=== PATIENT | female | born 1970 | race Caucasian/White ===

== ENCOUNTER → 2021-11-24 10:30 | Outpatient (CLI) | payer BC, SELFPAY ==
[2021-11-24 20:10] LABS: SARS-CoV-2 RNA PCR Negative
== END ==
PROVIDERS: PCP Family Medicine; Visit Provider Family Medicine
DX: Z20.822 Contact with and (suspected) exposure to COVID-19 (principal)
CPT/HCPCS: C9803; U0003; U0005

== ENCOUNTER 2024-09-18 16:12 | Outpatient (CLI) | payer BC, OTHER, SELFPAY ==
[2024-09-18 23:11] LABS: Free T4 Free Thyroxine 0.64 ng/mL (0.78-2.19)
== END 2024-09-18 16:13 | disposition home or self-care (01) ==
LOC: ANHBWCLAB 16:14
PROVIDERS: PCP Nurse Practitioner Adult Health; Visit Provider Nurse Practitioner Adult Health
DX: R79.89 Other specified abnormal findings of blood chemistry (principal)
CPT/HCPCS: 36415; 84439; 84443

== ENCOUNTER 2024-11-01 15:35 | Outpatient (CLI) | payer BC, OTHER, SELFPAY ==
[2024-11-01 20:41] LABS: Free T4 Free Thyroxine 0.75 ng/dL (0.78-2.19)
== END 2024-11-01 15:36 | disposition home or self-care (01) ==
LOC: ANHBWCLAB 15:37
PROVIDERS: PCP Nurse Practitioner Adult Health; Visit Provider Nurse Practitioner Adult Health
DX: E03.9 Hypothyroidism, unspecified (principal)
CPT/HCPCS: 36415; 84439; 84443

== ENCOUNTER 2024-12-31 15:47 | Outpatient (CLI) | payer BC, OTHER, SELFPAY ==
--- OUTSIDE RECORDS SUMMARY | 2024-12-31 15:50 | XMS_ITS | Clinical Summary ---
Author Organization [facility] Address [address] [place] [address] Phone Care Team Providers Care Electric Appliance Installer Name Role Phone Aracelis Barry MD Primary Care Provider Allergies Active Allergy Reactions Criticality Noted Date Comments Cefuroxime Diarrhea,Vomiting 09/27/2021 Medications pseudoephedrine (SUDAFED) 120 MG TABLET SR 12 HR Take 120 mg by mouth 2 times daily as needed for Congestion. Active buPROPion (WELLBUTRIN) 300 MG TABLET SR 24 HR XL tablet Take 300 mg by mouth daily. 1 Active albuterol 108 (90 Base) MCG/ACT Aerosol Solution take 2 Puffs by inhalation every 4 hours as needed for Wheezing or Cough. 1 Inhaler 2 1 Active traMADol (ULTRAM) 50 MG TabletIndication s:Chest pain, unspecified type,Pneumonia of left lower lobe due to infectious organism Take 1-2 Tablets by mouth every 6 hours as needed for Moderate or more severe pain. 20 Tablet 1 Active Cetirizine HCl (ZYRTEC PO) Take by mouth. Act yann Active Problems No known active problems Immunizations Immunization Administration Dates Next Due TDAP Vaccine 09/27/2021 Social History Tobacco Use Types Packs/Day Years Used Date Smoking Tobacco: Every Day Cigarettes Smokeless Tobacco: Never Alcohol Use Standard Drinks/Week Comments No 0 (1 standard drink = 0.6 oz pur e alcohol) Comments No Sex and Gender Information Value Date Recorded Sex Assigned at Not on file Legal Sex Female 7:24 PM CDT Gender Identity Not on file Sexual Orientation Not on file Last Filed Vital Signs Vital Sign Reading Time Taken Comments Blood Pressure 118/80 09/27/2021 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 Pulse 73 09/27/2021 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 Temperature 37.2 C (99 F) 09/27/2021 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 Respiratory Rate 16 09/27/2021 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 Oxygen Saturation 98% 09/27/2021 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 Inhaled Oxygen Concentration - - Weight 59 kg (130 lb) 07/02/2021 7:16 AM CDT Height 160 cm (5' 3 ) 07/02/2021 7:16 AM CDT Body Mass Index 23.03 07/02/2021 7:16 AM CDT Plan of Treatment Health Maintenance Due Date Last Done Comments Hepatitis C Virus (HCV) Screening 1972 Hepatitis B Immunization (1 of 3 - 19+ 3-dose series) 1991 Pap Smear 1993 Cervical Cancer Screening (CCS) 2002 HPV/Cotest 2002 Colonoscopy 2017 Colorectal Cancer Screening 2017 Cologuard 2022 Immunochemical Fecal Occult Blood 2022 Mammogram 2022 03/09/2018 Pneumococcal Immunization (5 0+ years) (1 of 1 - PCV) 2022 Zoster Immunization (1 of 2) 2022 Influenza Immunization (#1) 2024 SARS-COV-2 Immunization ( season) 2024 Respiratory Syncytial Virus (RSV) Immunization (Adult) (1 - 1-dose 75+ series) 2047 Discussion re Starting/Frequ ency of Mammograms Discontinued 03/09/2018 DTaP/Tdap/Td Immunization Discontinued 09/27/2021 Meningococcal Immunization (ACWY) Aged Out No longer eligible based on patient's age to complete this topic Pneumococcal Immunization Combined Aged Out No longer eligible based on patient's age to complete this topic Rotavirus Immunization Aged Out No lo nger eligible based on patient's age to complete this topic Procedures Procedure Name Priority Date/Time Associated Diagnosis Comments KATINA SCREENING BILATERAL DIGITAL W CAD Routine 03/09/2018 4:35 PM CDT Screening breast examination from Last 3 Months or Most Recently Relevant to Health Maintenance Results * KATINA SCREENING BILATERAL DIGITAL W CAD (03/09/2018 4:35 PM CDT) Anatomical Region Laterality Modality breast Bilateral Mammography 03/09/2018 4:06 PM CDT Narrative 03/11/2018 2:31 PM CDT - KATINA SCREENING BILATERAL DIGITAL W CAD BILATERAL DIGITAL SCREENING MAMMOGRAM WITH CAD WITH MEDIOLATERAL OBLIQUE CRANIOCAUDAL: 03/09/2018 The study was acquired using digital technology and interpreted from soft copy. Current study was also evaluated with ICAD version 7.2. CLINICAL: Baseline screening. Patient has no complaints. No personal history of cancer. No family history of breast cancer. Additional images taken to open up the IMF bilaterally. Technologist was unable to get on the MLO views due to the patient's asthenic body habitus. COMPARISONS: No prior exams were available for comparison. BREAST TISSUE:There are scattered fibroglandular densities in both breasts. FINDINGS: No significant masses, calcifications, or other findings are seen in either breast. IMPRESSION: BI-RAD 1 NEGATIVE There is no mammographic evidence of malignancy. A 1 year screening mammogram is recommended. The patient has been or will be contacted. The patient will be entered into a reminder system with a target due date of 1 year for her next screening exam. Electronically signed by: Sara Silva M.D. ml/penrad:03/10/2018 09:56:25 Dot Compliance Specialist: Silvia Garcia (Shobha), [facility] letter sent: Normal Exam Reading location: [facility] BI-RADS: 1 Negative Procedure Note Sara Silva MD - 03/11/2018 - KATINA SCREENING BILATERAL DIGITAL W CAD BILATERAL DIGITAL SCREENING MAMMOGRAM WITH CAD WITH MEDIOLATERAL OBLIQUE CRANIOCAUDAL: 03/09/2018 The study was acquired using digital technology and interpreted from soft copy. Current study was also evaluated with ICAD version 7.2. CLINICAL: Baseline screening. Patient has no complaints. No personal history of cancer. No family history of breast cancer. Additional images taken to open up the IMF bilaterally. Technologist was unable to get on the MLO views due to the patient's asthenic body habitus. COMPARISONS: No prior exams were available for comparison. BREAST TISSUE:There are scattered fibroglandular densities in both breasts. FINDINGS: No significant masses, calcifications, or other findings are seen in either breast. IMPRESSION: BI-RAD 1 NEGATIVE There is no mammographic evidence of malignancy. A 1 year screening mammogram is recommended. The patient has been or will be contacted. The patient will be entered into a reminder system with a target due date of 1 year for her next screening exam. Electronically signed by: Sara Silva M.D. ml/penrad:03/10/2018 09:56:25 Dot Compliance Specialist: Silvia Garcia (Shobha), [facility] letter sent: Normal Exam Reading location: [facility] BI-RADS: 1 Negative Aracelis Barry MD IMG MAMMO ORDERABLES Final Result from Last 3 Months or Most Recently Relevant to Health Maintenance Insurance [facility] Care Teams Electric Appliance Installer Relationship Specialty Start Date End Date Aracelis Barry MD [facility] [place] [address] PCP - General Chlorobutadiene Scrubber Operator 01/24/16
--- OUTSIDE RECORDS SUMMARY | 2024-12-31 15:50 | XMS_ITS | Clinical Summary ---
Author Organization [facility] Address [address] [address] Phone Care Team Providers [facility] Volunteer Name Role Phone Juve Meza NP Primary Care Provider [phone] Allergies Active Allergy Reactions Criticality Noted Date Comments Cefuroxime Diarrhea,Vomiting Low 09/27/2021 Medications triamcinolone (KENALOG) 0.1 % cream APPLY TO ECZEMA TWICE A DAY X2 WEEKS NEEDED FOR FLARES Active phentermine (ADIPEX-P) 37.5 mg tablet Take 1 tablet (37.5 mg total) by mouth daily Active pseudoephedrine ER (SUDAFED) 120 mg 12 hr tablet Take 1 tablet (120 mg total) by mouth 2 (two) times a day as needed Active nystatin-triamci nolone cream APPLY TO THE AFFECTED AREA(S) BY TOPICAL ROUTE 2 TIMES PER DAY IN THEMORNING AND EVENING Active mupirocin (BACTROBAN) 2 % ointment Apply topically 3 (three) times a day 06/24/20 23 Active mometasone (Nasonex) 50 mcg/actuation nasal spray [place] 2 sprays every day by intranasal route. Active methocarbamoL (ROBAXIN) 500 mg tablet Take 1 tablet (500 mg total) by mouth 3 (three) times a day as needed Active fluticasone propionate (FLONASE) 50 mcg/actuation nasal spray 2 sprays daily Act yann Dupixent Pen pen injector INJECT 1 PEN (300MG) SUBCUTANEOUSLY EVERY 2 WEEKS Active clotrimazole-bet amethasone (LOTRISONE) cream APPLY TO AFFECTED AREAS TWICE DAILY EACH MORNING AND EVENING FOR 2 WEEKS Active clobetasoL (TEMOVATE) 0.05 % cream APPLY THIN COAT TO AFFECTED AREA TWICE A DAY Active betamethasone dipropionate (DIPROLENE) 0.05 % ointment TO AFFECTED AREAS OF RASH TWICE [place] X 2 WEEKS NEEDED Active ALPRAZolam (Xanax) 0.25 mg tablet Take 1 tablet (0.25 mg total) by mouth daily as needed for anxiety 01/06/20 10 Active albuterol HFA (PROVENTIL HFA,VENTOLIN HFA,PROAIR HFA) 90 mcg/actuation inhaler INHALE 2 PUFFS EVERY 4 HOURS NEEDED FOR WHEEZING OR COUGH 07/02/20 21 Active Alcohol Prep Pads pads, medicated USE NEEDED 07/05/20 23 Active amLODIPine (NORVASC) 10 mg tablet Take 1 tablet (10 mg total) by mouth daily 90 tablet 1 08/23/20 23 Active venlafaxine XR (EFFEXOR-XR) 37.5 mg 24 hr capsule Take 2 capsules (75 mg total) by mouth daily 08/23/20 23 Active losartan-hydroCH LOROthiazide (HYZAAR) 100-12.5 mg per tablet 10/01/20 23 Active valACYclovir (VALTREX) 1 gram tablet Take 2 tablets (2,000 mg total) by mouth 2 (two) times a day Active rosuvastatin (CRESTOR) 10 mg tablet TAKE 1 TABLET BY MOUTH EVERY DAY 90 tablet 1 04/10/20 24 Active Additional Information Patient taking differently: 20 mgoral Daily, Reported on 06/04/2024 aspirin 81 mg enteric coated tablet Take 1 tablet (81 mg total) by mouth daily Active Active Problems Problem Noted Date Diagnosed Date Encounter for screening colonoscopy 11/15/2023 Anxiety 08/23/2023 Chest pain, unspecified 08/23/2023 Disorder of nail 08/23/2023 Palpitations 08/23/2023 Serous otitis media 08/23/2023 Shortness of breath 08/23/2023 Assessment & Plan (08/24/2023 9:25 AM CDT): 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 Current tobacco use. Takes the Dupixent and PRN inhaler that she rarely uses. Over the past couple weeks has been having lower respiratory symptoms. Empirically tx w/ azithromycin given the likely COPD hx. Sinusitis 08/23/2023 Tinea corporis 08/23/2023 Upper respiratory infection 08/23/2023 Chronic daily headache 04/19/2023 Essential hypertension 04/19/2023 Assessment & Plan (08/24/2023 9:28 AM CDT): Home BP's ranging 130-140's/80-90's. Get's headaches when they are elevated. Recently told to stop her Losartan-HCTZ 100 mg-12.5 mg and start Amlodipine 5 mg daily x 4 weeks ago from previous PCP. Will increase the Amlodipine to 10 mg daily. Menopausal flushing 04/19/2023 Assessment & Plan (08/24/2023 9:28 AM CDT): Sx continuing, will have her establish with [facility] for further evaluation. Overweight 04/19/2023 Iliotibial band syndrome 07/21/2022 Family history of ischemic h eart disease and other diseases of the circulatory system 12/05/2009 Mixed anxiety depressive disorder 12/05/2009 Assessment & Plan (08/24/2023 9:27 AM CDT): Venlafaxine not providing much improvement, will increase to 75 mg daily. Patient has Alprazolam that she uses very sparingly, maybe 1-2x every 1-2 months. Tobacco dependence syndrome 12/05/2009 Encounters Date Type Department Care Team Description 11/02/2024 3:11 PM PUBLISHING SYSTEMS ANALYST - 11/02/2024 11:59 PM PUBLISHING SYSTEMS ANALYST Hospital Encounter [address] [address] Nicotine dependence, uncomplicated, unspecified nicotine product type Discharge Disposition: Discharge to home or self care 10/31/[address] [address] Niya Schilling, JASON 10/23/[address] [address] Maria Antonia Escalera RN 10/19/2024 10:28 AM PUBLISHING SYSTEMS ANALYST - 10/19/2024 11:59 PM PUBLISHING SYSTEMS ANALYST Hospital Encounter [address] [address] Localized enlarged lymph nodes Discharge Disposition: Discharge to home or self care 10/19/2024 8:31 AM PUBLISHING SYSTEMS ANALYST - 10/19/2024 11:59 PM PUBLISHING SYSTEMS ANALYST Hospital Encounter [facility] [address] [place] [id number] 2, Amh Rad Rn Rad, Amh Breast Localized enlarged lymph nodes Discharge Disposition: Discharge to home or self care 10/17/[address] [address] Maria Antonia Escalera, JASON 10/17/2024 [facility] [address] [address] Maria Antonia Escalera, JASON 10/17/[address] [address] Maria Antonia Escalera, JASON 10/16/[address] [address] Maria Antonia Escalera, JASON 10/15/[address] [address] Maria Antonia Escalera, JASON 10/15/[address] [address] Maria Antonia Escalera, JASON 10/11/[address] [address] Maria Antonia Escalera, JASON 10/09/2024 3:15 PM PUBLISHING SYSTEMS ANALYST - 10/09/2024 11:59 PM PUBLISHING SYSTEMS ANALYST Hospital Encounter [address] [address] Enlarged lymph nodes, unspecified Discharge Disposition: Discharge to home or self care from Last 3 Months Immunizations Name Administration Dates Next Due Influenza, Trivalent, IM (MDV) 09/20/2013 Influenza, Unspecified 08/23/2023(Deferr ed: Patient Refused),11/21/2022(Deferred: Patient Refused) Tdap 09/27/2021 Surgical History Surgery Date Site/Laterality Comments ABLATION TUBAL LIGATION WISDOM TOOTH EXTRACTION US GUIDED BIOPSY LYMPH NODE SUPERFICIAL LEFT 4 N/A Medical History Medical History Date Comments Hypertension Eczema Depression Anxiety Perimenopausal PONV (postoperative nausea and vomiting) Family History Medical History Relation Name Comments No Known Problems Father Heart disease Mother Hypertension Sister 2 Relation Name Status Comments Father Mother Sister 1 Alive Sister 2 Alive Social History Tobacco Use Types Packs/Day Years Used Date Smoking Tobacco: Every Day Cigarettes 0.8 35 AUDIT-C Answer Date Recorded Q1: How often do you have a drink containing alc ohol? Monthly or less 06/04/2024 Q2: How many drinks containi ng alcohol do you have on a typical day when you are drinking? 1 or 2 06/04/2024 Q3: How often do you have si x or more drinks on one occasion? Never 06/04/2024 PHQ-2 Answer Date Recorded PHQ-2 Total Score (If total score is 3 or more points, staff should administer the PHQ-9) 0 08/23/2023 Personal Safety Answer Date Recorded Have you ever been in or are you currently in a harmful physical or emotional relationship or is someone making you feel afraid or unsafe? Denies 10/19/2024 Comments Unknown Sex and Gender Information Value Date Recorded Sex Assigned at Not on file Legal Sex Female 8:04 PM PUBLISHING SYSTEMS ANALYST Gender Identity Not on file Sexual Orientation Not on file Obstetrics History Para Term AB IAB SAB Ectopic Multiple Livin g Live Births 2 2 2 Date Outcome GA Total Labor Labor/2nd/3rd Weight Sex Type Anes PTL Patricia A1 A5 Name Clin Term Term Last Filed Vital Signs Vital Sign Reading Time Taken Comments Blood Pressure 136/91 10/19/2024 9:20 AM PUBLISHING SYSTEMS ANALYST Pulse 70 10/19/2024 9:20 AM PUBLISHING SYSTEMS ANALYST Temperature 36.3 C (97.3 F) 10/19/2024 9:20 AM PUBLISHING SYSTEMS ANALYST Respiratory Rate 18 10/19/2024 9:20 AM PUBLISHING SYSTEMS ANALYST Oxygen Saturation 96% 10/19/2024 9:20 AM PUBLISHING SYSTEMS ANALYST Inhaled Oxygen Concentration - - Weight 67.1 kg (148 lb) 11/02/2024 4:15 PM PUBLISHING SYSTEMS ANALYST Height 160 cm (5' 3 ) 11/02/2024 4:15 PM PUBLISHING SYSTEMS ANALYST Body Mass Index 26.22 11/02/2024 4:15 PM PUBLISHING SYSTEMS ANALYST Plan of Treatment Health Maintenance Due Date Last Done Comments Cervical Cancer Screening 1972 Pneumococcal vaccine <65 (1 of 2 - PCV) 1978 Hepatitis B Screening 1990 Regular Well Visit/Exam 18-64 1990 Zoster Vaccine (1 of 2) 2022 Influenza Vaccine (#1) 2024 09/20/2013 Depression Screening 08/23/2024 08/23/2023 Breast Cancer Screening-Mammogram 08/22/2025 024, 03/09/2018 Lung Cancer Screening 11/03/2025 11/02/2024 Colon Cancer Screening-Colonoscopy 06/04/20292023 DTaP/Tdap/Td Vaccine (2 - Td or Tdap) 09/27/203105/2021 Hepatitis C Screening Completed 06/29/2021 Medical Devices Implanted Type Area Bryologist Device Identifier Shelf Expiration Date Model / Serial / Lot Bard Peripheral Vascular Ultraclip Bard 17ga 10cm 2 Trigger Permanent Ultrasound [id number] - [id number] - [id number] Implanted:Qty: 1 on 10/19/2024 by Rodrick Thompson MD at [facility] Breast Right: Axilla Bard Peripheral Vascular 10/18/2026 [id number] / [id number] Description:Right Lymph Node Axilla Procedures Procedure Name Priority Date/Time Associated Diagnosis Comments CT LUNG CANCER SCREENING Schedule Routine, Read Routine (OP Routine) 11/02/2024 4:14 PM PUBLISHING SYSTEMS ANALYST Nicotine dependence, uncomplicated, unspecified nicotine product type SURGICAL PATHOLOGY Routine 10/19/2024 10 :41 AM PUBLISHING SYSTEMS ANALYST Localized enlarged lymph nodes MAMM POST CLIP PLACEMENT RIGHT Schedule Routine, Read Routine (OP Routine) 10/19/2024 10:37 AM PUBLISHING SYSTEMS ANALYST Localized enlarged lymph nodes US GUIDED BIOPSY LYMPH NODE SUPERFICIAL RIGHT Schedule Routine, Read Routine (OP Routine) 10/19/2024 10:20 AM PUBLISHING SYSTEMS ANALYST Localized enlarged lymph nodes US AXILLARY NON-BREAST RIGHT Schedule Routine, Read Routine (OP Routine) 10/09/2024 3:44 PM PUBLISHING SYSTEMS ANALYST Enlarged lymph nodes, unspecified SCREENING MAMMOGRAM BILATERAL W STEPHEN Schedule Routine, Read Routine (OP Routine) 08/22/2024 4:19 PM CDT Screening mammogram, encounter for COLONOSCOPY 06/04/2024 8:45 AM CDT HEPATITIS C ANTIBODY Routine 06/29/2021 3:50 PM CDT from Last 3 Months or Most Recently Relevant to Health Maintenance Results * CT Lung Cancer Screening (11/02/2024 4:14 PM PUBLISHING SYSTEMS ANALYST) Anatomical Region Laterality Modality Chest N/A Computed Tomogra phy 11/09/2024 8:42 AM PUBLISHING SYSTEMS ANALYST Narrative 11/09/2024 8:57 AM PUBLISHING SYSTEMS ANALYST EXAM DESCRIPTION: CT LUNG CANCER SCREENING REASON FOR STUDY: Screening CT of the chest in a current smoker with a 35 pack year smoking history. Additional history: None. TECHNIQUE: Low dose CT scan of the chest was performed without intravenous contrast using helical scanning technique. The exam extends from the lung apices through the lung bases. Automatic exposure control was used as a dose optimization technique. NOTE: This study was performed for the specific purposes of lung cancer screening and is not an alternative to diagnostic chest CT. RADIATION DOSE: CT dose index volume (CTDIvol) = 1.01 mGy COMPARISON: None FINDINGS: SMOKING RELATED LUNG DISEASE: There is biapical pleural-parenchymal scarring. There are mild emphysematous changes to the lungs. LUNG NODULES: Calcified granuloma in the left upper lobe on image 125. CORONARY ARTERY CALCIFICATION: Positive OTHER: There is no pleural effusion or pneumothorax. The central airways are patent. Heart size is normal. No pericardial effusion or thickening. Thoracic aorta is normal in course and caliber and contains a small amount of calcified atherosclerotic plaque. There is a prominent but nonenlarged precarinal lymph node along with a few other nonenlarged mediastinal lymph nodes. There is a prominent left axillary lymph node measuring up to 9 mm in short axis. There are a few other prominent left axillary lymph nodes as well as some prominent right axillary lymph nodes. None are enlarged by size criteria. Visualized portions of the upper abdomen are unremarkable. There is no suspicious osseous lesion. IMPRESSION: No suspicious pulmonary nodule. Mild emphysematous changes to the lungs. Coronary artery calcifications. Multiple prominent but nonenlarged mediastinal and axillary lymph nodes. A nonspecific finding. Lung-RADS category 2: Benign appearance or behavior. Recommendation: Low dose Screening CT of chest in 12 months. THIS IS AN ELECTRONICALLY VERIFIED FINAL REPORT 11/09/2024 8:57 AM - Electronically signed by Nathan Tovar M.D. AM: AM Report ID: [id number] Reading Location: [place] [address] Procedure Note Nathan Tovar MD - 11/09/2024 EXAM DESCRIPTION: CT LUNG CANCER SCREENING REASON FOR STUDY: Screening CT of the chest in a current smoker with a35 pack year smoking history. Additional history: None. TECHNIQUE: Low dose CT scan of the chest was performed without intravenous contrast using helical scanning technique. The exam extends from the lung apices through the lung bases. Automatic exposure control was used as adose optimization technique. NOTE: This study was performed for the specific purposes of lung cancer screening and is not an alternative to diagnostic chest CT. RADIATION DOSE: CT dose index volume (CTDIvol) = 1.01 mGy COMPARISON: None FINDINGS: SMOKING RELATED LUNG DISEASE: There is biapical pleural-parenchymal scarring. There are mild emphysematous changes to the lungs. LUNG NODULES: Calcified granuloma in the left upper lobe on image 125. CORONARY ARTERY CALCIFICATION: Positive OTHER: There is no pleural effusion or pneumothorax. The centralairways are patent. Heart size is normal. No pericardial effusion or thickening. Thoracic aorta is normal in course and caliber and contains a small amountof calcified atherosclerotic plaque. There is a prominent but nonenlarged precarinal lymph node along with a few other nonenlarged mediastinal lymph nodes. There is a prominent left axillary lymph node measuring up to 9 mmin short axis. There are a few other prominent left axillary lymph nodes aswell as some prominent right axillary lymph nodes. None are enlarged by size criteria. Visualized portions of the upper abdomen are unremarkable.There is no suspicious osseous lesion. IMPRESSION: No suspicious pulmonary nodule. Mild emphysematous changes to the lungs. Coronary artery calcifications. Multiple prominent but nonenlarged mediastinal and axillary lymph nodes.A nonspecific finding. Lung-RADS category 2: Benign appearance or behavior. Recommendation: Low dose Screening CT of chest in 12 months. THIS IS AN ELECTRONICALLY VERIFIED FINAL REPORT 11/09/2024 8:57 AM - Electronically signed by Nathan Tovar M.D. AM: AM Report ID: [id number] Reading Location: [id number] Juve Meza NP IMG CT PROCEDURES Final Result * Surgical pathology (10/19/2024 10:41 AM PUBLISHING SYSTEMS ANALYST) Tissue (Lymph node, needle biopsy) 10/19/2024 10:28 AM PUBLISHING SYSTEMS ANALYST Narrative PATHOLOGY [facility] - 10/22/2024 4:56 PM PUBLISHING SYSTEMS ANALYST EPIC results best viewed via link to PDF [facility] Department of Pathology [address] [place] [address] Note to Patients: This report may contain a detailed description of human tissue sent by a health care provider to the laboratory for pathologic evaluation. The content of this report is essential for diagnosis and may provide important critical findings. This information may be unfamiliar to patients to review without a medical professional present. It is advised that the patient review this report in the presence of a health care provider who can answer questions and explain the details. Final Report Patient Name: LUBNA PANDYA [address]: [address] [place] [address] Gender: F : 1970 (Age: 53) Service: Location: [facility] : [id number] Hospital #: [id number] Patient Type[facility] Taken: 10/19/2024 Received: 10/19/2024 Accessioned: 10/19/2024 Reported: 10/22/2024 Physician(s):VALE Sigala MD Diagnosis: Lymph node, superficial right axillary, ultrasound-guided core biopsy: - Lymph node with preserved bella architecture, increased sinusoidal histiocytes, and pigment-laden histiocytes (see diagnosis comment). Diagnosis Comment: The electronic medical record is reviewed and the 10/09/24 Right Axillary (Non-Breast) Ultrasound impression of a right axillary lymph node or 2 adjacent lymph nodes with cortical thickening is noted. While the etiology was noted to be uncertain, reactive lymphadenopathy was identified as a consideration and the findings were classified as of low suspicion for malignancy. The aforementioned histologic features and observed staining pattern (described below in the microscopic description) are consistent with benign lymphoid tissue. As mentioned above, pigment-laden histiocytes are seen. The overall findings are suggestive of dermatopathic changes. Recommend correlation with clinical findings and follow-up as clinically indicated. If clinical concern persists following appropriate interval follow-up, an excisional biopsy is recommended. Geoffrey Sawyer MD Report Electronically Reviewed and Signed Out By Geoffrey Sawyer MD 10/22/2024 16:56:26 Specimen(s) Received: A: US Guided biopsy Lymph node Superficial Right Axilla; cores x 8 Microscopic Description: Microscopic examination shows thin needle biopsy fragments of lymphoid tissue with preserved bella architecture, increased sinusoidal histiocytes, and pigment- laden histiocytes. There is no evidence of overt cytologic atypia. There is no significant population of multinucleated giant cells nor is there is significant eosinophilia. CD3, CD5, CD10, CD20, BCL-2, BCL-6, CD23, cyclin D1, Ki-67, and AE1/AE3 stains are performed with appropriately reactive controls on block A1. CD3 and CD20 show an appropriate mixture of T and B cells, respectively. CD5 highlights T cells in a similar distribution to CD3. CD10 and BCL-6 are positive in germinal centers while BCL-2 is appropriately negative within germinal centers. CD23 highlights follicular dendritic cell meshwork. Cyclin D1 is negative in lymphocytes, rather exhibiting some nonspecific staining of background histiocytes. The Ki-67 proliferation index is low overall, higher in germinal centers. The AE1/AE3 stain is negative. Clinical History: Localized enlarged lymph nodes [R59.0] US Guided biopsy Lymph Node Superfical Right Axilla; cores x 8 Gross Description: The specimen is submitted in a single formalin filled container labeled LUBNA PANDYA and lymph node superficial right axilla . It is 8 core and core fragments of fibrofatty tissue between 0.2 and 0.9 cm. All in one cassette. Removed from patient on 10/19/2024 at 10:29, placed in formalin at 10:33, and removed from formalin at 20:50. Formalin fixation times are in compliance with ASCO/CAP guidelines. Rodrigo Carvalho R.N., P.A./Olnydia Quevedo M.D. REPORT IMAGES AND SCANNED DOCUMENTS, IF INCLUDED, ONLY VIEWABLE IN PDF VERSION OF REPORT The performance characteristics of some immunohistochemical stains, fluorescence in-situ hybridization tests and immunophenotyping by flow cytometry cited in this report (if any) were determined by the Surgical Pathology Department at as part of an ongoing food quality tester program and in compliance with federally mandated regulations drawn from the Clinical Laboratory Improvement Act of 1988 (CLIA '88). Some of these tests rely on the use of analyte specific reagents and are subject to specific labeling requirements by the US Food and Drug Administration. Such diagnostic tests may only be performed in a facility that is certified by the Department of Health and Human Services as a high complexity laboratory under CLIA '88. The FDA has determined that such clearance or approval is not necessary. This test is used for clinical purposes. It should not be regarded as investigational or for research. Nevertheless, federal rules concerning the medical use of analyte specific reagents require that the following disclaimer be attached to the report: This test was developed and its performance characteristics determined by the Surgical Pathology Department [facility]. It has not been cleared or approved by the U. S. Food and Drug Administration. Note for decalcified specimens: This assay has not been validated on decalcified tissues. Results should be interpreted with caution given the possibility of false negativity on decalcified specimens Juve Meza NP LAB PATHOLOGY ORDERABLES Final Result PATHOLOGY [facility] [address] [place], [place] [id number] * Mammo Post Clip Placement Right (10/19/2024 10:37 AM PUBLISHING SYSTEMS ANALYST) Anatomical Region Laterality Modality Breast Right Mammography 10/19/2024 10:5 7 AM PUBLISHING SYSTEMS ANALYST Addenda Addendum by Rodrick Thompson MD on 10/23/2024 12:36 PM PUBLISHING SYSTEMS ANALYST The breast tissue is heterogeneously dense, which may obscure small masses. Pathology returns as lymph node with preserved bella architecture, increased sinusoidal histiocytes, and pigment laden histiocytes. The pathology report states that while the etiology was noted to be uncertain, reactive lymphadenopathy was identified as a consideration and the findings were classified as of low suspicion for malignancy. The report further states that the histologic features and observed staining pattern are consistent with benign lymphoid tissue and that the overall findings are suggestive of dermatopathic changes. Pathology is considered to be concordant with the radiologic findings, and short-term follow-up with right axillary ultrasound in 3 months is recommended. Clotilde at Juve Meza's office was notified of the biopsy results and recommended follow-up by Maria Antonia Escalera RN at 10:32 AM on 10/23/2024. Electronically signed by: Rodrick Thompson M.D. Impressions 10/19/2024 10:57 AM PUBLISHING SYSTEMS ANALYST Successful ultrasound-guided biopsy of a right axillary lymph node. Pathology is pending. An addendum to this report will be issued when the pathology results are available. Electronically signed by: Rodrick Thompson M.D. Narrative 10/19/2024 10:57 AM PUBLISHING SYSTEMS ANALYST EXAMINATION: MAMMO POST CLIP PLACEMENT RIGHT, US GUIDED BIOPSY LYMPH NODE SUPERFICIAL RIGHT ORDERING HEALTHCARE PROVIDER: JUVE MEZA HISTORY: Right axillary lymphadenopathy COMPARISON: Ultrasound 10/09/2024. Mammogram 08/22/2024. TECHNIQUE/FINDINGS: The risks, benefits, and alternatives to the procedure were discussed with the patient, and the patient provided informed written consent for the procedure. A time out procedure was performed, during which the patient name, date of , procedure, and site of procedure were confirmed verbally with the patient and the healthcare team. Pre-procedure ultrasound images demonstrate the right axillary lymph node with cortical thickening described on prior diagnostic ultrasound. Local anesthesia was obtained with 1% lidocaine. Using aseptic technique and ultrasound guidance, an 18 gauge core biopsy needle used to obtain 8 core biopsies of the right axillary lymph node of concern. Subsequently, a wing biopsy marking clip was placed. Manual compression was applied at the site of the biopsy. The patient tolerated the procedure well. There were no immediate post-procedure complications. Post-procedural mammography was performed to document post biopsy clip placement. The clip is appropriately positioned within the left axilla at the pre-biopsy location of the targeted lymph node. The patient was discharged from the department in stable condition. Juve Meza [employer] IMG MAMMO PROCEDURES Edited Re sult - Final * US Guided Biopsy Lymph Node Superficial Right (10/19/2024 10:20 AM PUBLISHING SYSTEMS ANALYST) Anatomical Region Laterality Modality Entire body N/A Ultrasound 10/19/2024 10:5 7 AM PUBLISHING SYSTEMS ANALYST Addenda Addendum by Rodrick Thompson MD on 10/23/2024 12:36 PM PUBLISHING SYSTEMS ANALYST The breast tissue is heterogeneously dense, which may obscure small masses. Pathology returns as lymph node with preserved bella architecture, increased sinusoidal histiocytes, and pigment laden histiocytes. The pathology report states that while the etiology was noted to be uncertain, reactive lymphadenopathy was identified as a consideration and the findings were classified as of low suspicion for malignancy. The report further states that the histologic features and observed staining pattern are consistent with benign lymphoid tissue and that the overall findings are suggestive of dermatopathic changes. Pathology is considered to be concordant with the radiologic findings, and short-term follow-up with right axillary ultrasound in 3 months is recommended. Clotilde at [facility] Meza's office was notified of the biopsy results and recommended follow-up by Maria Antonia Escalera RN at 10:32 AM on 10/23/2024. Electronically signed by: Rodrick Thompson M.D. Impressions 10/19/2024 10:57 AM PUBLISHING SYSTEMS ANALYST Successful ultrasound-guided biopsy of a right axillary lymph node. Pathology is pending. An addendum to this report will be issued when the pathology results are available. Electronically signed by: Rodrick Thompson M.D. Narrative 10/19/2024 10:57 AM PUBLISHING SYSTEMS ANALYST EXAMINATION: MAMMO POST CLIP PLACEMENT RIGHT, US GUIDED BIOPSY LYMPH NODE SUPERFICIAL RIGHT ORDERING HEALTHCARE PROVIDER: JUVE MEZA HISTORY: Right axillary lymphadenopathy COMPARISON: Ultrasound 10/09/2024. Mammogram 08/22/2024. TECHNIQUE/FINDINGS: The risks, benefits, and alternatives to the procedure were discussed with the patient, and the patient provided informed written consent for the procedure. A time out procedure was performed, during which the patient name, date of , procedure, and site of procedure were confirmed verbally with the patient and the healthcare team. Pre-procedure ultrasound images demonstrate the right axillary lymph node with cortical thickening described on prior diagnostic ultrasound. Local anesthesia was obtained with 1% lidocaine. Using aseptic technique and ultrasound guidance, an 18 gauge core biopsy needle used to obtain 8 core biopsies of the right axillary lymph node of concern. Subsequently, a wing biopsy marking clip was placed. Manual compression was applied at the site of the biopsy. The patient tolerated the procedure well. There were no immediate post-procedure complications. Post-procedural mammography was performed to document post biopsy clip placement. The clip is appropriately positioned within the left axilla at the pre-biopsy location of the targeted lymph node. The patient was discharged from the department in stable condition. Procedure Note Rodrick Thompson MD - 10/19/2024 EXAMINATION: MAMMO POST CLIP PLACEMENT RIGHT, US GUIDED BIOPSY LYMPH NODE SUPERFICIAL RIGHT ORDERING HEALTHCARE PROVIDER: JUVE MEZA HISTORY: Right axillary lymphadenopathy COMPARISON: Ultrasound 10/09/2024. Mammogram 08/22/2024. TECHNIQUE/FINDINGS: The risks, benefits, and alternatives to the procedure were discussed with the patient, and the patient provided informed written consent for the procedure. A time out procedure was performed, during which the patient name, date of , procedure, and site of procedure were confirmed verbally with the patient and the healthcare team. Pre-procedure ultrasound images demonstrate the right axillary lymph node with cortical thickening described on prior diagnostic ultrasound. Local anesthesia was obtained with 1% lidocaine. Using aseptic technique and ultrasound guidance, an 18 gauge core biopsy needle used to obtain 8 core biopsies of the right axillary lymph node of concern. Subsequently, a wing biopsy marking clip was placed. Manual compression was applied at the site of the biopsy. The patient tolerated the procedure well. There were no immediate post-procedure complications. Post-procedural mammography was performed to document post biopsy clip placement. The clip is appropriately positioned within the left axilla at the pre-biopsy location of the targeted lymph node. The patient was discharged from the department in stable condition. IMPRESSION: Successful ultrasound-guided biopsy of a right axillary lymph node. Pathology is pending. An addendum to this report will be issued when the pathology results are available. Electronically signed by: Rodrick Thompson M.D. us Juve Meza NP IMG US PROCEDURES Edited Resul t - Final * US Axillary Right Non-Breast (10/09/2024 3:44 PM PUBLISHING SYSTEMS ANALYST) Anatomical Region Laterality Modality Upper Extremities Right Ultrasound 10/09/2024 4:17 PM PUBLISHING SYSTEMS ANALYST Impressions 10/09/2024 4:17 PM PUBLISHING SYSTEMS ANALYST Right axillary lymph node or 2 adjacent lymph nodes with cortical thickening correlate with the finding of concern on prior screening mammogram. Etiology is uncertain. Reactive lymphadenopathy is a consideration. I discussed options of ultrasound-guided core needle biopsy versus short-term ultrasound follow-up in 8 weeks with the patient. The patient voiced preference for ultrasound-guided biopsy. As such, this finding will be classified as of low suspicion for malignancy, for which ultrasound-guided biopsy is recommended. BI-RADS: 4A - Suspicious for malignancy (low suspicion). This facility will contact the referring clinician's office to obtain an order for the biopsy. The patient will then be contacted to schedule the biopsy appointment. Electronically signed by: Rodrick Thompson M.D. Narrative 10/09/2024 4:17 PM PUBLISHING SYSTEMS ANALYST EXAMINATION: US AXILLARY NON-BREAST RIGHT ORDERING HEALTHCARE PROVIDER: JUVE MEZA HISTORY: 53-year-old female recalled from screening mammogram for a right axillary lymph node with thickened cortex. COMPARISON: Mammography dated 08/22/2024 and 03/09/2018 TECHNIQUE: Multiple grayscale and color Doppler ultrasound images of the right axilla were obtained. FINDINGS: Targeted ultrasound of the right axilla demonstrates a single lymph node or two adjacent lymph nodes with mildly abnormal morphology and cortical thickening measuring up to approximately 7 mm in thickness. This is felt to correlate with the finding on prior screening mammogram from 08/22/2024. In my discussion with patient, she denies any recent right arm vaccination or illness. 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 Procedure Note Rodrick Thompson MD - 10/09/2024 EXAMINATION: US AXILLARY NON-BREAST RIGHT ORDERING HEALTHCARE PROVIDER: JUVE MEZA HISTORY: 53-year-old female recalled from screening mammogram for a right axillary lymph node with thickened cortex. COMPARISON: Mammography dated 08/22/2024 and 03/09/2018 TECHNIQUE: Multiple grayscale and color Doppler ultrasound images of the right axilla were obtained. FINDINGS: Targeted ultrasound of the right axilla demonstrates a single lymph node or two adjacent lymph nodes with mildly abnormal morphology and cortical thickening measuring up to approximately 7 mm in thickness. This is felt to correlate with the finding on prior screening mammogram from 08/22/2024. In my discussion with patient, she denies any recent right arm vaccination or illness. 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 IMPRESSION: Right axillary lymph node or 2 adjacent lymph nodes with cortical thickening correlate with the finding of concern on prior screening mammogram. Etiology is uncertain. Reactive lymphadenopathy is a consideration. I discussed options of ultrasound-guided core needle biopsy versus short-term ultrasound follow-up in 8 weeks with the patient. The patient voiced preference for ultrasound-guided biopsy. As such, this finding will be classified as of low suspicion for malignancy, for which ultrasound-guided biopsy is recommended. BI-RADS: 4A - Suspicious for malignancy (low suspicion). This facility will contact the referring clinician's office to obtain an order for the biopsy. The patient will then be contacted to schedule the biopsy appointment. Electronically signed by: Rodrick Thompson M.D. Juve Meza NP [facility] [place] PROCEDURES Final Result * (ABNORMAL) Screening Mammogram Bilateral W Stephen (08/22/2024 4:19 PM CDT) Anatomical Region Laterality Modality Breast Bilateral Mammography 08/23/2024 4:50 PM CDT Impressions 08/23/2024 4:50 PM CDT Axillary lymph node on the right for which ultrasound is recommended. FINAL ASSESSMENT: BI-RADS Category 0: Incomplete - Need Additional Imaging Evaluation. Electronically signed by: Erica Pastrana M.D. Narrative 08/23/2024 4:50 PM CDT EXAMINATION: BILATERAL SCREENING MAMMOGRAM COMPARISON: 03/09/2018 TECHNIQUE: Full-field 2D and digital breast tomosynthesis (DBT) images were obtained. CAD was utilized. BREAST PARENCHYMAL COMPOSITION: The breasts are heterogenously dense, which may obscure small masses. FINDINGS: There is no suspicious mass, calcification, or distortion in either breast. There is a lymph node in the left axilla which appears to have thickened cortex mammographically. In addition, calcifications versus other high densities are well seen in this node on tomography. us Self Screening Mammogram IMG MAMMO PROCEDURES Fi nal Result * Colonoscopy (06/04/2024 8:45 AM CDT) Anatomical Region Laterality Modality Other Narrative Procedure Note Kyle Humphrey MD - 06/04/2024 8:45 AM CDT [facility] Patient Name: Lubna Pandya Procedure Date: 06/04/2024 8:45 AM Date of : 1970 Admit Type: Outpatient Age: 53 Gender: Female Attending MD: Kyle Humphrey M.D. Room: [facility] ENDOSCOPY ROOM 1 Note Status: Finalized Patient Profile: This is a 53 year old female. No family history of colon cancer. Screening colonoscopy Procedure: Colonoscopy Indications: Screening for colorectal malignant neoplasm, Thisis the patient's first colonoscopy Referring MD: Lisa Spear Providers: Kyle Humphrey M.D. Impression: - Three 3 to 4 mm polyps in the sigmoid colon andin the descending colon, removed with a jumbo cold forceps. Resected and retrieved. - Internal hemorrhoids. Recommendation: - Await pathology results. - Repeat colonoscopy in 5 years for surveillance. - Continue present medications. Medicines: Monitored Anesthesia Care Complications: No immediate complications. Estimated Blood Loss: Estimated blood loss: none. Procedure: Pre-Anesthesia Assessment: - Prior to the procedure, a History and Physicalwas performed, and patient medications and allergieswere reviewed. The patient's tolerance of previous anesthesia was also reviewed. The risks andbenefits of the procedure and the sedation options and risks were discussed with the patient. All questions were answered, and informed consent was obtained. Prior Anticoagulants: The patient has taken noanticoagulant or antiplatelet agents. ASA Grade Assessment: Per anesthesia note and evaluation. After reviewing the risks and benefits, the patient was deemed in satisfactory condition to undergo the procedure. The benefits, risks and alternatives of theprocedure and sedation were discussed and informed consentwas obtained. All questions were answered. Please referto the signed informed consent document in the medical record. The bowel preparation used was Miralax and bisacodyl tablets via split dose instruction. The scope was passed under direct vision. The Pediatric Colonoscope PCF-H190L [id number] was introducedthrough the anus and advanced to the the cecum, identifiedby appendiceal orifice and ileocecal valve. Thequality of the bowel preparation was good. Bowel prep was administered using a split dose. Findings: The perianal and digital rectal examinations were normal. The cecum appeared normal. The transverse colon and ascending colon appeared normal. Three semi-sessile polyps were found in the sigmoid colon anddescending colon. The polyps were 3 to 4 mm in size. These polyps were removedwith a jumbo cold forceps. Resection and retrieval were complete. Internal hemorrhoids were found during retroflexion. The hemorrhoids were small. Electronically signed by Kyle Humphrey M.D. Kyle Humphrey M.D. 06/04/2024 9:57:56 AM Number of Addenda: 0 Note Initiated On: 06/04/2024 8:45 AM Procedure Code(s): --- Professional --- 96439, Colonoscopy, flexible; with biopsy, single or multiple Diagnosis Code(s): --- Professional --- Z12.11, Encounter for screening for malignant neoplasm of colon K64.8, Other hemorrhoids D12.5, Benign neoplasm of sigmoid colon D12.4, Benign neoplasm of descending colon CPT copyright 2020 [employer] [place] [employer]. All rights reserved. The codes documented in this report are preliminary and upon glaze mixer reviewmay be revised to meet current compliance requirements. Recognized by the [place] [employer] for promoting quality in endoscopy us Kyle Humphrey MD ENDOSCOPY PROCEDURES Final Result * Hepatitis C antibody (06/29/2021 3:50 PM CDT) Hep C Ab Nonreactive Nonreactive ARACELI GREER (BREA) Comment: Interpretive Data Nonreactive: Antibodies to HCV not detected. Does NOT exclude the possibility of recent exposure to HCV. Equivocal: Equivocal for HCV antibodies. Supplemental molecular testing will be automatically performed to determine infection status in accordance with current CDC screening recommendations. Reactive: Positive for HCV antibodies. This may represent current or past HCV infection. Supplemental molecular testing will be automatically performed to determine current infection status in accordance with current CDC screening recommendations. Interpretive data was last revised on 2020. Testing performed by: , [address] [place] [address]., [id number] Blood specimen (specimen) 06/29/2021 3:50 PM CDT 06/30/2021 9:58 AM CDT us Not In File Miscellaneous LAB MICROBIOLOGY - GEN ERAL ORDERABLES Final Result ARACELI GREER (BREA) 1 [facility] Department [place] [address] from Last 3 Months or Most Recently Relevant to Health Maintenance Insurance [facility] CHOICE PLUS [facility] CHOICE PLUS ANTHEM ACCESS Advance Directives For more information, please contact: [phone] * Full Code (Latest Code Status on File) Date Activated Date Inactivated Comments 06/04/2024 8:45 AM 06/13/2024 5:40 PM * Full Code Date Activated Date Inactivated Comments 06/04/2024 8:45 AM 06/04/2024 8:45 AM Care Teams Hospice Volunteer Relationship Specialty Start Date End Date Juve Meza NP [address] [place] [address] PCP - General Nurse Practitioner 07/14/24 [facility] 08/23/23
--- OUTSIDE RECORDS SUMMARY | 2024-12-31 15:50 | XMS_ITS | Referral Summary ---
Author Organization [facility] Address [address] [facility] [address] [place] [address] Phone Care Team Providers Care Manager Costing Name Role Phone Jesusdinorah Juve MARIE Primary Care Provider [phone] Encounters Date Type Department Care Team Description 11/02/2024 3:11 PM FOOD PHOTOGRAPHER - 11/02/2024 11:59 PM FOOD PHOTOGRAPHER Hospital Encounter [address] [address] Nicotine dependence, uncomplicated, unspecified nicotine product type Discharge Disposition: Discharge to home or self care 10/31/2024 Telephone [facility] [address] [address] Niya Schilling, JASON 10/23/[address] [address] Maria Antonia Escalera, JASON 10/19/2024 10:28 AM FOOD PHOTOGRAPHER - 10/19/2024 11:59 PM FOOD PHOTOGRAPHER Hospital Encounter [address] [address] Localized enlarged lymph nodes Discharge Disposition: Discharge to home or self care 10/19/2024 8:31 AM FOOD PHOTOGRAPHER - 10/19/2024 11:59 PM FOOD PHOTOGRAPHER Hospital Encounter [address] [address] 2, Amh Rad Rn Rad, Amh Breast Localized enlarged lymph nodes Discharge Disposition: Discharge to home or self care 10/17/[address] [address] Maria Antonia Escalera, JASON 10/17/[address] [address] Maria Antonia Escalera RN 10/17/2024 Telephone [facility] [address] [place] [address] Maria Antonia Escalera RN 10/16/2024 Telephone [facility] [address] [place] [address] Maria Antonia Escalera RN 10/15/2024 Telephone [facility] [address] [address] Maria Antonia Escalera RN 10/15/[address] [address] Maria Antonia Escalera RN 10/11/2024 Telephone [facility] [address] [address] Maria Antonia Escalera RN 10/09/2024 3:15 PM FOOD PHOTOGRAPHER - 10/09/2024 11:59 PM FOOD PHOTOGRAPHER Hospital Encounter [address] [address] Enlarged lymph nodes, unspecified Discharge Disposition: Discharge to home or self care from Last 3 Months Allergies Active Allergy Reactions Criticality Noted Date [...] Active mometasone (Nasonex) 50 mcg/actuation nasal spray [place] 2 sprays every day by intranasal route. [...] Sx continuing, will have her establish with [facility] for further evaluation. Overweight 04/19/2023 Iliotibial band [...] every 1-2 months. Tobacco dependence syndrome 12/05/2009 Immunizations Name Administration Dates Next Due Influenza, Trivalent, IM (MDV) 09/20/2013 Influenza, Unspecified 08/23/2023(Deferr ed: Patient Refused),11/21/2022(Deferred: Patient Refused) Tdap 09/27/2021 Social History Tobacco Use Types Packs/Day [...] on file Legal Sex Female 8:04 PM FOOD PHOTOGRAPHER Gender Identity Not on file Sexual Orientation Not on file Last Filed Vital Signs Vital Sign Reading Time Taken Comments Blood Pressure 136/91 10/19/2024 9:20 AM FOOD PHOTOGRAPHER Pulse 70 10/19/2024 9:20 AM FOOD PHOTOGRAPHER Temperature 36.3 C (97.3 F) 10/19/2024 9:20 AM FOOD PHOTOGRAPHER Respiratory Rate 18 10/19/2024 9:20 AM FOOD PHOTOGRAPHER Oxygen Saturation 96% 10/19/2024 9:20 AM FOOD PHOTOGRAPHER Inhaled Oxygen Concentration - - Weight 67.1 kg (148 lb) 11/02/2024 4:15 PM FOOD PHOTOGRAPHER Height 160 cm (5' 3 ) 11/02/2024 4:15 PM FOOD PHOTOGRAPHER Body Mass Index 26.22 11/02/2024 4:15 PM FOOD PHOTOGRAPHER Plan of Treatment Not on file Medical Devices Implanted Type Area Senior Living Advisor Device Identifier Shelf Expiration Date Model / Serial / Lot Bard Peripheral Vascular Ultraclip Bard 17ga 10cm 2 Trigger Permanent Ultrasound [id number] - [id number] - [id number] Implanted:Qty: 1 on 10/19/2024 by Rodrick Thompson MD at [facility] Breast Right: Axilla Bard Peripheral Vascular 10/18/2026 [id number] / [id number] / [id number] Description:Right Lymph Node Axilla Procedures Procedure Name Priority Date/Time Associated Diagnosis Comments CT LUNG CANCER SCREENING Schedule Routine, Read Routine (OP Routine) 11/02/2024 4:14 PM FOOD PHOTOGRAPHER Nicotine dependence, uncomplicated, unspecified nicotine product type SURGICAL PATHOLOGY Routine 10/19/2024 10 :41 AM FOOD PHOTOGRAPHER Localized enlarged lymph nodes MAMM POST CLIP PLACEMENT RIGHT Schedule Routine, Read Routine (OP Routine) 10/19/2024 10:37 AM FOOD PHOTOGRAPHER Localized enlarged lymph nodes US GUIDED BIOPSY LYMPH NODE SUPERFICIAL RIGHT Schedule Routine, Read Routine (OP Routine) 10/19/2024 10:20 AM FOOD PHOTOGRAPHER Localized enlarged lymph nodes US AXILLARY NON-BREAST RIGHT Schedule Routine, Read Routine (OP Routine) 10/09/2024 3:44 PM FOOD PHOTOGRAPHER Enlarged lymph nodes, unspecified SCREENING MAMMOGRAM BILATERAL W STEPHEN Schedule Routine, Read Routine (OP Routine) 08/22/2024 4:19 PM CDT Screening mammogram, encounter for COLONOSCOPY 06/04/2024 8:45 AM CDT HEPATITIS C ANTIBODY Routine 06/29/2021 3:50 PM CDT from Last 3 Months or Most Recently Relevant to Health Maintenance Results * CT Lung Cancer Screening (11/02/2024 4:14 PM FOOD PHOTOGRAPHER) Anatomical Region Laterality Modality Chest N/A Computed Tomogra phy 11/09/2024 8:42 AM FOOD PHOTOGRAPHER Narrative 11/09/2024 8:57 AM FOOD PHOTOGRAPHER EXAM DESCRIPTION: CT LUNG CANCER SCREENING REASON [...] Nathan Tovar M.D. AM: AM Report ID: [id number] Reading Location: [place] [address] Procedure Note Nathan Tovar MD - 11/09/2024 [...] Nathan Tovar M.D. AM: AM Report ID: [id number] Reading Location: [id number] Juve Meza NP IMG CT PROCEDURES Final Result * Surgical pathology (10/19/2024 10:41 AM FOOD PHOTOGRAPHER) Tissue (Lymph node, needle biopsy) 10/19/2024 10:28 AM FOOD PHOTOGRAPHER Narrative [facility]OLOGY [facility] [place] - 10/22/2024 4:56 PM FOOD PHOTOGRAPHER EPIC results best viewed via link to PDF [facility] Department of Pathology [address] [place] [address] Note to Patients: This report may contain [...] Final Report Patient Name: LUBNA PANDYA Address: [address] [place] [id number] Gender: F : 1970 (Age: 53) Service: Location: [facility] #: [id number] Patient Type: [facility] ANCILLARY Taken: 10/19/2024 Received: 10/19/2024 Accessioned: 10/19/2024 [...] compliance with ASCO/CAP guidelines. Rodrigo Carvalho R.N., P.A./Carlos Quevedo M.D. REPORT IMAGES AND SCANNED DOCUMENTS, IF INCLUDED, ONLY VIEWABLE IN PDF VERSION OF REPORT The performance characteristics of some immunohistochemical stains, fluorescence in-situ hybridization tests and immunophenotyping by flow cytometry cited in this report (if any) were determined by the Surgical Pathology Department at [facility] as part of an ongoing quality control supervisor program and in compliance with federally mandated [...] characteristics determined by the Surgical Pathology Department [facility]. It has not been cleared or approved by the U. S. Food and Drug Administration. Note for decalcified specimens: This assay has not been validated on decalcified tissues. Results should be interpreted with caution given the possibility of false negativity on decalcified specimens Juve Meza NP LAB PATHOLOGY ORDERABLES Final Result PATHOLOGY [facility] [address] [place] [address] * Mammo Post Clip Placement Right (10/19/2024 10:37 AM FOOD PHOTOGRAPHER) Anatomical Region Laterality Modality Breast Right Mammography 10/19/2024 10:5 7 AM FOOD PHOTOGRAPHER Addenda Addendum by Rodrick Thompson MD on 10/23/2024 12:36 PM FOOD PHOTOGRAPHER The breast tissue is heterogeneously dense, which [...] Rodrick Thompson M.D. Impressions 10/19/2024 10:57 AM FOOD PHOTOGRAPHER Successful ultrasound-guided biopsy of a right axillary lymph node. Pathology is pending. An addendum to this report will be issued when the pathology results are available. Electronically signed by: Rodrick Thompson M.D. Narrative 10/19/2024 10:57 AM FOOD PHOTOGRAPHER EXAMINATION: MAMMO POST CLIP PLACEMENT RIGHT, US [...] the department in stable condition. Juve Meza NP IMG MAMMO PROCEDURES Edited Re sult - Final * US Guided Biopsy Lymph Node Superficial Right (10/19/2024 10:20 AM FOOD PHOTOGRAPHER) Anatomical Region Laterality Modality Entire body N/A Ultrasound 10/19/2024 10:5 7 AM FOOD PHOTOGRAPHER Addenda Addendum by Rodrick Thompson MD on 10/23/2024 12:36 PM FOOD PHOTOGRAPHER The breast tissue is heterogeneously dense, which [...] Rodrick Thompson M.D. Impressions 10/19/2024 10:57 AM FOOD PHOTOGRAPHER Successful ultrasound-guided biopsy of a right axillary lymph node. Pathology is pending. An addendum to this report will be issued when the pathology results are available. Electronically signed by: Rodrick Thompson M.D. Narrative 10/19/2024 10:57 AM FOOD PHOTOGRAPHER EXAMINATION: MAMMO POST CLIP PLACEMENT RIGHT, US [...] US Axillary Right Non-Breast (10/09/2024 3:44 PM FOOD PHOTOGRAPHER) Anatomical Region Laterality Modality Upper Extremities Right Ultrasound 10/09/2024 4:17 PM FOOD PHOTOGRAPHER Impressions 10/09/2024 4:17 PM FOOD PHOTOGRAPHER Right axillary lymph node or 2 adjacent [...] Rodrick Thompson M.D. Narrative 10/09/2024 4:17 PM FOOD PHOTOGRAPHER EXAMINATION: US AXILLARY NON-BREAST RIGHT ORDERING HEALTHCARE [...] appointment. Electronically signed by: Rodrick Thompson M.D. us Juve Meza EARLY MORNING IMG US PROCEDURES Final Result * (ABNORMAL) Screening [...] Humphrey MD - 06/04/2024 8:45 AM CDT [facility] Patient Name: Lubna Pandya Procedure Date: 06/04/2024 8:45 AM Date of : 1970 Admit Type: Outpatient Age: 53 Gender: Female Attending MD: Kyle Humphrey M.D. Room: [facility] ENDOSCOPY ROOM 1 Note Status: Finalized Patient [...] under direct vision. The Pediatric Colonoscope PCF-H190L [id number] was introducedthrough the anus and advanced to [...] 8:45 AM Procedure Code(s): --- Professional --- 99462, Colonoscopy, flexible; with biopsy, single or multiple Diagnosis Code(s): --- Professional --- Z12.11, Encounter for screening for malignant neoplasm of colon K64.8, Other hemorrhoids D12.5, Benign neoplasm of sigmoid colon D12.4, Benign neoplasm of descending colon CPT copyright 2020 [employer] [place] [employer]. All rights reserved. The codes documented in this report are preliminary and upon drill press set up operator radial reviewmay be revised to meet current compliance requirements. Recognized by the [place] [employer] for promoting quality in endoscopy Kyle Humphrey MD ENDOSCOPY PROCEDURES Final Result * Hepatitis C antibody (06/29/2021 3:50 PM CDT) Hep C Ab Nonreactive Nonreactive [facility] Comment: Interpretive Data Nonreactive: Antibodies to HCV [...] last revised on 2020. Testing performed by: [facility], [address] [place] [address], [place]., [address] Blood specimen (specimen) 06/29/2021 3:50 PM CDT 06/30/2021 9:58 AM CDT us Not In File Miscellaneous LAB MICROBIOLOGY - GEN ERAL ORDERABLES Final Result Performing Organization Address City/State/[facility] Co de Phone Number [facility] [address] [facility] Department [place] [address] from Last 3 Months or Most Recently Relevant to Health Maintenance Insurance [facility] [employer]PPO Address: [address] [address] [facility] [employer] [facility] [employer]/PPO Address: [address] [address] [place] [address] [employer]THE[employer] ACCESS Advance Directives For more information, please contact: [phone] * Full Code (Latest Code Status on File) Date Activated Date Inactivated Comments 06/04/2024 8:45 AM 06/13/2024 5:40 PM * Full Code Date Activated Date Inactivated Comments 06/04/2024 8:45 AM 06/04/2024 8:45 AM Care Teams Manager Costing Relationship Specialty Start Date End Date Juve Meza NP [address] [place] [address] PCP - General Nurse Practitioner 07/14/24 [facility] 08/23/23
--- OUTSIDE RECORDS SUMMARY | 2024-12-31 15:50 | XMS_ITS | CONTINUITY OF CARE DOCUMENT ---
Author Name meenu, meenu Address Unknown Organization [facility] Address [address] [place] [address] Phone [phone] Care Team Providers Care Window Treatment Installer Name Role Phone Mushtaq GALVEZ, Elise Unavailable [phone] JUVE VALDEZ Unavailable [phone] JUVE VALDEZ Unavailable PROBLEMS Condition Status Date Provider Notes CHEST PAIN-11/30 RT STRESS NL completed - Dewayne Landin MD SHORTNESS OF BREATH-11/30 ECHO EF 65 NL completed - 01/05 Elise Landin MD TOBACCO ABUSE active Elise Landin MD FAMILY HX. OF OTHER CARDIOVA SCULAR DISEASE active Elise Landin MD PALPITATIONS-11/30 HOLTER SR HR 56-142 active ? Elise Landin MD ANXIETY DEPRESSION active Elise Landin MD Chest pain--echo ef nl, 11/22 024, CCS 69, 01/2024 active Alfa Samson Hypertension active Elise Landin MD Hyperlipidemia active Elise Landin MD Shortness of breath active Elise Landin MD Headaches active Elise Landin MD ENCOUNTERS Date Type Provider Location Encounter Diag nosis - In-person encounter Office Visit Elise Landin MD [facility] Chest pain--echo ef nl, 11/2023, CCS 69, 01/2024 - In-person encounter Office Visit Elise Landin MD [facility] - In-person encounter Office Visit Elise Landin MD [facility] CHEST PAIN-11/30 RT STRESS NLSHORTNESS OF BREATH-11/30 ECHO EF 65 NLChest pain--echo ef nl, 11/2023, CCS 69, 01/2024HypertensionHype rlipidemiaShortness of breathHeadaches - In-person encounter Office Visit Elise Landin MD [facility] - In-person encounter Office Visit Elise Landin MD [facility] - In-person encounter Office Visit Elise Landin MD [facility] - In-person encounter Office Visit Elise Landin MD [facility] PALPITATIONS-11/30 HOLTER SR HR 56-142 - In-person encounter Office Visit Elise Landin MD [facility] CHEST PAIN-11/30 RT STRESS NLSHORTNESS OF BREATH-11/30 ECHO EF 65 NLTOBACCO ABUSEFAMILY HX. OF OTHER CARDIOVASCULAR DISEASEPALPITATIONS-11/21 0 HOLTER SR HR 56-142ANXIETY DEPRESSION VITAL SIGNS Date Observation Value Provider Body Mass Index (Ratio) 25.90 kg/m2 Ferny Landin MD blood pressure, cuff size regular As marlyn Avina blood pressure, diastolic 82 mm[Hg] As marlyn Avina blood pressure, systolic 124 mm[Hg] Prabhakar Avina oxygen saturation, oximetry 94 % Silvia Avina pulse rate 73 /min Silvia Avina weight E&M 146.2 [lb_av] Silvia Avina Body Mass Index (Ratio) 24.80 kg/m2 Ferny Landin MD blood pressure, diastolic 69 mm[Hg] Ayleen Bess blood pressure, systolic 115 mm[Hg] Any kamila Bess oxygen saturation, oximetry 95 % Joie Shahriar pulse rate 81 /min Joie Shahriar weight E&M 140 [lb_av] Joie Shahriar blood pressure, cuff size large An tanja Shahriar height E&M 63 [in_i] Joie Shahriar Body Mass Index (Ratio) 24.09 kg/m2 Ferny Landin MD blood pressure, diastolic 87 mm[Hg] Janette nkLogmariel blood pressure, systolic 136 mm[Hg] Alia kLog blood pressure, cuff size regular Ja rr blood pressure, diastolic 87 mm[Hg] Ja rret blood pressure, systolic 136 mm[Hg] Jar ret pulse rate 74 /min Haider respiratory rate E&M 12 /min Haider oxygen saturation, oximetry 98 % [place]ider weight E&M 136 [lb_av] [place]ider height E&M 63 [in_i] Haider y blood pressure, diastolic 70 mm[Hg] Ethel dow March 2013 blood pressure, systolic 112 mm[Hg] Emily sujatha March 2013 Body Mass Index (Ratio) 19.73 kg/m2 Moisés davidson March 2013 pulse rate 78 /min Patito March 2013 oxygen saturation, oximetry 99 % Patito March 2013 respiratory rate E&M 16 /min Patito March 2013 weight E&M 111 [lb_av] Patito March 2013 blood pressure, diastolic 76 mm[Hg] Remigio Mcclendon blood pressure, systolic 120 mm[Hg] Leo Mcclendon Body Mass Index (Ratio) 20.09 kg/m2 Diana Mcclendon pulse rate 75 /min Sapna Mcclendon oxygen saturation, oximetry 97 % Sapna Mcclendon respiratory rate E&M 17 /min Sapna Mcclendon weight E&M 113 [lb_av] Sapna Mcclendon height E&M 63 [in_i] Sapna Mcclendon blood pressure, diastolic, left arm 82 mm [Hg] [facility] blood pressure, systolic, left arm 130 mm [Hg] [facility] blood pressure, diastolic, right arm 76 m m[Hg] [facility] blood pressure, systolic, right arm 114 m m[Hg] [facility] blood pressure, diastolic 76 mm[Hg] Latrice cheung [place] blood pressure, systolic 114 mm[Hg] Seth hernandez [facility] pulse rate 76 /min [facility] oxygen saturation, oximetry 97 % [facility] respiratory rate E&M 16 /min [facility] weight E&M 110 [lb_av] [facility] blood pressure, diastolic 70 mm[Hg] Brendan Chaudhary RN blood pressure, systolic 118 mm[Hg] Sridhar Chaudhary RN pulse rate 76 /min Sridhar Chaudhary RN oxygen saturation, oximetry 97 % Sridhar Chaudhary RN respiratory rate E&M 16 /min Sridhar rubin RN weight E&M 114 [lb_av] Sridhar Chaudhary RN blood pressure, diastolic 62 mm[Hg] Ca ndace Carolyn blood pressure, systolic 155 mm[Hg] Can dace Carolyn blood pressure, diastolic, left arm 82 mm [Hg] Barbara Hanson blood pressure, systolic, left arm 125 mm [Hg] Barbara Hanson blood pressure, diastolic, right arm 82 m m[Hg] Barbara Hanson blood pressure, systolic, right arm 126 m m[Hg] Barbara Hanson blood pressure, diastolic 82 mm[Hg] Fe toribio Hanson blood pressure, systolic 126 mm[Hg] Abram ram Hanson pulse rate 76 /min Barbara Hanson oxygen saturation, oximetry 98 % Barbara Hanson respiratory rate E&M 16 /min Barbara Hanson weight E&M 112 [lb_av] Barbara Hanson ALLERGIES No Known Drug Allergies RESULTS Date Observation Value Provider Reference Range Interpretation Location platelet count 261 10*3/mm3 [facility] hematocrit, blood 34.0 % [facility] triglyceride, serum, fasting 106 mg/dL [facility] HDL cholesterol, serum 47 mg/dL [facility] lipoprotein, beta, serum, point, quantitative, calculated 125 mg/dL [facility] cholesterol, serum 193 mg/dL [facility] thyroid stimulating hormone, serum 1.58 u[IU]/mL [facility] alanine aminotransferase (SGPT), serum 20 1/L [facility] aspartate aminotransferase (SGOT), serum 24 1/L [facility] creatinine, serum 0.63 mg/dL [facility] potassium, serum 4.7 mmol/L [facility] sodium, serum 138 mmol/L [facility] HISTORY OF MEDICATION USE Medication Status Instructions Dates Provider Indications Com ments Premarin 0.625 mg tablet active Take 1 tablet by mouth once a day 7 Karen Cuevas RN estradiol 0.0375 mg/24 hr patch weekly completed Apply 1 patch to skin once a week 6 - 7 Karen Cuevas RN progesterone micronized 100 mg capsule active Take 1 capsule by mouth once a day 6 Alfa Samson famotidine 40 mg tablet active Take 1 tablet by mouth once a day 6 Alfa Samson fluoxetine 10 mg tablet active Take 1 tablet by mouth once a day Elise Landin MD rosuvastatin 20 mg tablet active Take 1 tablet by mouth once daily Elise Landin MD Dupixent Pen 300 mg/2 mL pen injector active Elise Landin MD venlafaxine 37.5 mg capsule,extended release 24hr completed - 4 Elise Landin MD losartan-hydrochl orothiazide 100-25 mg tablet completed - 4 Elise Landin MD losartan-hydrochl orothiazide 100-25 mg tablet active Take 1 tablet by mouth once a day TAKE 1 TABLET BY MOUTH EVERY DAY Elise Landin MD Paxil 10 mg tablet completed 1 tablet by mouth once a day 6 - 5 Elise Landin MD Xanax 0.25 mg tablet completed 1 tablet by mouth once a day 6 - 5 Elise Landin MD SOCIAL HISTORY Date Observation Value Provider drug use none Alfa Samson smoking/tobacco cess ation, patient education and counseling yes Alfa Samson smoking status smoker - current status unknown Alfa Samson drug use none Joie Bess smoking/tobacco cess ation, patient education and counseling yes Joie Bess smoking status smoker - current status unknown Joie Bess smoking/tobacco cess ation, patient education and counseling yes Elise Landin MD social history reviewed E&M reviewed Elise Landin MD smoking status smoker - current status unknown Sapna Mcclendon smoking/tobacco cess ation, patient education and counseling yes Elise Landin MD social history reviewed E&M reviewed Elise Landin MD smoking/tobacco cess ation, patient education and counseling yes Sridhar Chaudhary RN social history reviewed E&M reviewed Sridhar Chaudhary RN smoking status current Yesenia Owens ethel social history E&M Marital Statu s: E thnicity: Elise Landin MD social history reviewed E&M reviewed Elise Landin MD physical exercise, f requency, days per week yes Barbara Byers drug use none Barbara Byers caffeine use, averag e drinks per day yes Barbara Byers alcohol use, average drinks per day Social Basis only Barbara Ayersz smoking status Smoker Barbara Byers FUNCTIONAL STATUS Date Observation Value Provider periodic limb movement index absent (0) Yesenia Leon MENTAL STATUS Date Observation Value Provider assessment of judgme nt and insight E&M Alert and oriented to time, place and person. Mood and affect are normal. Elise Landin MD assessment of judgme nt and insight E&M Alert and oriented to time, place and person. Mood and affect are normal. Elise Landin MD assessment of judgme nt and insight E&M Alert and oriented to time, place and person. Mood and affect are normal. Elise Landin MD assessment of judgme nt and insight E&M Alert and oriented to time, place and person. Mood and affect are normal. Sridhar Chaudhary RN assessment of judgme nt and insight E&M Alert and oriented to time, place and person. Mood and affect are normal. Elise Landin MD INSURANCE PROVIDERS Payer name Policy type / Coverage type Eunice red democrat ID [facility] [id number] [facility] [id number] Other [id number] ADVANCE DIRECTIVES Name Date DISCUSSED - NO DECISION MADE TREATMENT PLAN Date Name Performer Cardiology Alfa Samson Cardiology Alfa Samson Cardiology: H er updated medication list for this problem includes: Rosuvastatin 20 Mg Tablet (Rosuvastatin) ..... Take 1 tablet by mouth once daily Alfa Samson Cardiology Alfa Samson Cardiology: H er updated medication list for this problem includes: Losartan-hydrochlorothiazide 100-25 Mg Tablet (Losartan-hydrochlorothiazide) ..... Take 1 tablet by mouth once a day take 1 tablet by mouth every day Alfa Samson Cardiology: B P today: 124/82 P rior BP: 115/69 (11/24/2023) Prior 10 Yr Risk Heart Disease: Not enough information (12/11/2009) Labs Reviewed: C reat: 0.63 (02/17/2013) Chol: 193 (02/17/2013) HDL: 47 (02/17/2013) LDL: 125 (02/17/2013) T (02/17/2013) Her updated medication list for this problem includes: Losartan-hydrochlorothiazide 100-25 Mg Tablet (Losartan-hydrochlorothiazide) ..... Take 1 tablet by mouth once a day take 1 tablet by mouth every day Alfa Samson Cardiology: H er updated medication list for this problem includes: Rosuvastatin 10 Mg Tablet (Rosuvastatin) Nathan Amaya Cardiology:Still smo kes 0.5ppd. Will check calcium score. The Patient was reencouraged to stop smoking. Nathan Amaya Cardiology: B P today: 115/69 P rior BP: 136/87 (11/04/2023) Prior 10 Yr Risk Heart Disease: Not enough information (12/11/2009) Labs Reviewed: C reat: 0.63 (02/17/2013) Chol: 193 (02/17/2013) HDL: 47 (02/17/2013) LDL: 125 (02/17/2013) T (02/17/2013) Her updated medication list for this problem includes: Losartan-hydrochlorothiazide 100-25 Mg Tablet (Losartan-hydrochlorothiazide) Losartan-hydrochlorothiazide 100-25 Mg Tablet (Losartan-hydrochlorothiazide) ..... Take 1 tablet by mouth once a day take 1 tablet by mouth every day Nathan Amaya Cardiology Elise Landin MD Cardiology Elise Landin MD Cardiology Elise Landin MD Cardiology Elise Landin MD follow up: B P today: 112/70 Prior BP: 120/76 (02/16/2013) N uclear Stress Findings: 1. Normal Augustin protocol exercise tolerance test. 2 . Normal left ventricular size and function with a calculated ejection fraction of 64%. 3 . Myocardial scintigraphy is normal without evidence for previous myocardial infarction or reversible ischemia. - CNE (02/21/2013) Elise Landin MD follow up Elise Landin MD follow up: H er updated medication list for this problem includes: Xanax 0.25 Mg Tabs (Alprazolam) ..... One tab. daily Elise Landin MD follow up: H er updated medication list for this problem includes: Xanax 0.25 Mg Tabs (Alprazolam) ..... One tab. daily Orders: E KG ([id number]) Elise Landin MD Yearly Follow-up Elise Landin MD Yearly Follow-up: H er updated medication list for this problem includes: Xanax 0.25 Mg Tabs (Alprazolam) ..... One tab. daily Elise Landin MD Yearly Follow-up Elise Landin MD new pt: B P today: 126/82 Prior BP: / () Elise Landin MD new pt Elise Landin MD new pt: B P today: 126/82 Prior BP: / () Elise Landin MD new pt: B P today: 126/82 Prior BP: / () Elise Landin MD Date Name CT, Coronary Calcium Score Sleep Study Home Renal Artery Duplex Complete Echo Holter Monitor 24 Hr Stress Test - Routin e Complete Echo HISTORY OF PROCEDURES Procedure Date Procedure Name Provider Procedure Notes S tatus Complex e/m visit add on Elise Landin MD completed CT- Coronary CA score Elise Landin MD completed EKG Elise Landin MD completed EKG Elise Landin MD completed
[2024-12-31 19:39] LABS: Thyroid Stimulating Hormone 0.542 uIU/mL (0.465-4.680)
[2024-12-31 20:23] LABS: Free T4 Free Thyroxine 0.86 ng/dL (0.78-2.19)
== END 2024-12-31 15:48 | disposition home or self-care (01) ==
LOC: ANHBWCLAB 15:48
PROVIDERS: PCP Nurse Practitioner Adult Health; Visit Provider Nurse Practitioner Adult Health
DX: E03.9 Hypothyroidism, unspecified (principal)
CPT/HCPCS: 36415; 84439; 84443

== ENCOUNTER 2025-10-14 08:32 | Outpatient (CLI) | payer BC, OTHER, SELFPAY ==
--- OUTSIDE RECORDS SUMMARY | 2025-10-14 08:44 | XMS_ITS | Clinical Summary ---
Author Organization [facility] Address [address] [address] Phone Care Team Providers Care Claim Analyst Name Role Phone Tammy Meza NP Primary Care Provider [phone] Allergies Active Allergy Reactions Criticality Noted Date [...] Active mometasone (Nasonex) 50 mcg/actuation nasal spray Jackson 2 sprays every day by intranasal route. [...] Sx continuing, will have her establish with Dock Worker for further evaluation. Overweight 04/19/2023 Iliotibial band [...] 1-2 months. Tobacco dependence syndrome 12/05/2009 Immunizations Immunization Administration Dates Next Due Influenza, Trivalent, IM [...] on file Legal Sex Female 8:04 PM WIRE FENCE ERECTOR Gender Identity Not on file Sexual Orientation Not on file Obstetrics History Para Term AB IAB SAB Ectopic Multiple Livin g Live Births 2 2 2 Date Outcome GA Total Labor Labor/2nd/3rd Weight Sex Type Anes PTL Patricia A1 A5 Name Clin Term Term Last Filed Vital Signs Vital Sign Reading Time Taken Comments Blood Pressure 136/91 10/19/2024 9:20 AM WIRE FENCE ERECTOR Pulse 70 10/19/2024 9:20 AM WIRE FENCE ERECTOR Temperature 36.3 C (97.3 F) 10/19/2024 9:20 AM WIRE FENCE ERECTOR Respiratory Rate 18 10/19/2024 9:20 AM WIRE FENCE ERECTOR Oxygen Saturation 96% 10/19/2024 9:20 AM WIRE FENCE ERECTOR Inhaled Oxygen Concentration - - Weight 67.1 kg (148 lb) 11/02/2024 4:15 PM WIRE FENCE ERECTOR Height 160 cm (5' 3) 11/02/2024 4:15 PM WIRE FENCE ERECTOR Body Mass Index 26.22 11/02/2024 4:15 PM WIRE FENCE ERECTOR Plan of Treatment Health Maintenance Due Date Last Done Comments Cervical Cancer Screening 1972 Regular Well Visit/Exam 18-64 1990 Pneumococcal vaccine <65 (1 of 2 - PCV) 1991 Zoster Vaccine (1 of 2) 2022 Depression Screening 08/23/2024 08/23/2023 Influenza Vaccine (#1) 2025 09/20/2013 Breast Cancer Screening-Mammogram 08/22/2025 08/22/2024, 03/09/2018, 03/09/2018 Lung Cancer Screening 11/03/2025 11/02/2024 Colon Cancer Screening-Colonoscopy 06/04/20292023 DTaP/Tdap/Td Vaccine (2 - Td or Tdap) 09/27/203105/2021 Hepatitis B Screening Completed 06/29/2021 Hepatitis C Screening Completed 06/29/2021 Medical Devices Implanted Type Area Senior Production Manager Device Identifier Shelf Expiration Date Model / Serial / Lot Bard Peripheral Vascular Ultraclip Bard 17ga 10cm 2 Trigger Permanent Ultrasound [id number] - [id number] - [id number] Implanted:Qty: 1 on 10/19/2024 by Rodrick Thompson MD at [facility] Breast Right: Axilla Bard Peripheral Vascular 10/18/2026 [id number] / [id number] / [id number] Description:Right Lymph Node Axilla Procedures Procedure Name Priority Date/Time Associated Diagnosis Comments CT LUNG CANCER SCREENING Schedule Routine, Read Routine (OP Routine) 11/02/2024 4:14 PM WIRE FENCE ERECTOR Nicotine dependence, uncomplicated, unspecified nicotine product type SCREENING MAMMOGRAM BILATERAL W STEPHEN Schedule Routine, Read Routine (OP Routine) 08/22/2024 4:19 PM CDT Screening mammogram, encounter for COLONOSCOPY 06/04/2024 8:45 AM CDT HEPATITIS C ANTIBODY Routine 06/29/2021 3:50 PM CDT from Last 3 Months or Most Recently Relevant to Health Maintenance Results * CT Lung Cancer Screening (11/02/2024 4:14 PM WIRE FENCE ERECTOR) Anatomical Region Laterality Modality Chest N/A Computed Tomogra phy 11/09/2024 8:42 AM WIRE FENCE ERECTOR Narrative 11/09/2024 8:57 AM WIRE FENCE ERECTOR EXAM DESCRIPTION: CT LUNG CANCER SCREENING REASON [...] Nathan Tovar M.D. AM: AM Report ID: [id number] Reading Location: [id number] Procedure Note Nathan Tovar MD - 11/09/2024 [...] Nathan Tovar M.D. AM: AM Report ID: [id number] Reading Location: [id number] Tammy Meza NP IMPhyllis CT PROCEDURES Final Result * (ABNORMAL) Screening Mammogram [...] Humphrey MD - 06/04/2024 8:45 AM CDT [facility] Patient Name: Lubna Pandya Procedure Date: 06/04/2024 8:45 AM Date of : 1970 Admit Type: Outpatient Age: 53 Gender: Female Attending MD: Kyle Humphrey M.D. Room: [facility] ENDOSCOPY [facility]OM 1 Note Status: Finalized Patient [...] under direct vision. The Pediatric Colonoscope [id number]-[id number] was introducedthrough the anus and advanced to [...] 8:45 AM Procedure Code(s): --- Professional --- 81021, Colonoscopy, flexible; with biopsy, single or multiple Diagnosis Code(s): --- Professional --- Z12.11, Encounter for screening for malignant neoplasm of colon K64.8, Other hemorrhoids D12.5, Benign neoplasm of sigmoid colon D12.4, Benign neoplasm of descending colon CPT copyright 2020 [employer]. All rights reserved. The codes documented in this report are preliminary and upon environmental services director reviewmay be revised to meet current compliance requirements. Recognized by the [employer] for promoting quality [...] last revised on 2020. Testing performed by: [facility], [address] [place] [address], [place]., [address] Blood specimen (specimen) 06/29/2021 3:50 PM CDT 06/30/2021 9:58 AM CDT us Not In File Miscellaneous LAB MICROBIOLOGY - GEN ERAL ORDERABLES Final Result Performing Organization Address City/State/[facility] Co de Phone Number [facility] [place]) [address] [facility] Department [place] [address] from Last 3 Months or Most Recently Relevant to Health Maintenance Insurance [facility] [employer] [employer] Advance Directives For more information, please contact: [phone] * Full Code (Latest Code Status on File) Date Activated Date Inactivated Comments 06/04/2024 8:45 AM 06/13/2024 5:40 PM * Full Code Date Activated Date Inactivated Comments 06/04/2024 8:45 AM 06/04/2024 8:45 AM Care Teams Claim Analyst Relationship Specialty Start Date End Date Tammy Meza NP [address] [place] [address] PCP - General Nurse Practitioner 07/14/24 [facility] 08/23/23
--- OUTSIDE RECORDS SUMMARY | 2025-10-14 08:44 | XMS_ITS | Clinical Summary ---
Author Organization [facility] Address [address] [place] [address] Phone Care Team Providers Care Anode Worker Name Role Phone Aracelis Barry MD Primary [...] Comments Blood Pressure 118/80 09/27/2021 3:58 PM COSMETICS MACHINE OPERATOR Pulse 73 09/27/2021 3:58 PM COSMETICS MACHINE OPERATOR Temperature 37.2 C (99 F) 09/27/2021 3:58 PM COSMETICS MACHINE OPERATOR Respiratory Rate 16 09/27/2021 3:58 PM COSMETICS MACHINE OPERATOR Oxygen Saturation 98% 09/27/2021 3:58 PM COSMETICS MACHINE OPERATOR Inhaled Oxygen Concentration - - Weight 59 kg (130 lb) 07/02/2021 7:16 AM CDT Height 160 cm (5' 3) 07/02/2021 7:16 AM CDT Body Mass Index 23.03 07/02/2021 7:16 AM CDT Plan of Treatment Health Maintenance Due Date Last Done Comments Hepatitis C Virus (HCV) Screening 1970 Varicella Immunization (1 of 2 - 13+ 2-dose series) 1985 Hepatitis B Immunization (1 of 3 - 19+ 3-dose series) 1991 Pap Smear 1993 Cervical Cancer Screening (CCS) 2002 HPV/Cotest 2002 Cologuard 2017 Colonoscopy 2017 Colorectal Cancer Screening 2017 Immunochemical Fecal Occult Blood 2017 Pneumococcal Immunization (5 0+ years) (1 of 1 - PCV) 2022 Zoster Immunization (1 of 2) 2022 Influenza Immunization (#1) 2025 09/20/2013 SARS-COV-2 Immunization ( - 2024- season) 2025 Respiratory Syncytial Virus (RSV) Immunization (Adult) (1 - 1-dose 75+ series) 2047 Discussion re Starting/Frequ ency of Mammograms Discontinued 03/09/2018 Mammogram Discontinued 03/09/2018 DTaP/Tdap/Td Immunization Discontinued 09/27/2021 Human Papillomavirus (HPV) Immunization Aged Out No longer eligible b ased on patient's age to complete this topic Meningococcal Immunization (ACWY) Aged Out No longer [...] next screening exam. Electronically signed by: Sara bowens/justice:03/10/2018 09:56:25 Terrazzo Grinder: Silvia Garcia (Shobha), [facility] letter sent: Normal Exam Reading location: [facility] BI-RADS: 1 Negative Procedure Note Sara [...] next screening exam. Electronically signed by: Sara bowens/renrad:03/10/2018 09:56:25 Terrazzo Grinder: Silvia Garcia (R), [facility] letter sent: Normal Exam Reading location: [facility] BI-RADS: 1 Negative Aracelis Barry MD IMG MAMMO ORDERABLES Final Result from Last 3 Months or Most Recently Relevant to Health Maintenance Insurance [facility] Care Teams Anode Worker Relationship Specialty Start Date End Date Aracelis Barry MD [address] [place] [address] [place] [address] PCP - General Lead Informatica Developer 01/24/16
[2025-10-14 18:43] LABS: Hematocrit 44.1 % (37.0-47.0); Hemoglobin 14.4 g/dL (12.0-15.0); Immature Granulocyte Percent A 0.2 % (0-0.5); Lymphocytes Absolute Auto 2.48 K/mm3 (0.9-3.2); Mean Corpuscular HGB Conc 32.7 g/dl (32-36); Mean Corpuscular Hemoglobin 30.4 pg (26-34); Mean Corpuscular Volume 93.0 fl (80-100); Nucleated Red Blood Cells Absolute Auto 0.000 K/mm3 (0.0-0.012); Nucleated Red Blood Cells Perc 0.0 % (0.0-0.2); Platelet Count Result 308 k/mm3 (150-375); Red Blood Count 4.74 M/mm3 (4.2-5.4); White Blood Count 6.1 K/mm3 (4.5-10.0)
[2025-10-14 18:56] LABS: Alanine Aminotransferase 29 U/L (6-35); Albumin Level 4.4 g/dL (3.5-5.1); Alkaline Phosphatase 95 U/L (38-126); Anion Gap 6 mmol/L (4-12); Aspartate Amino Transferase 83 U/L (14-36); Bilirubin,Total 0.5 mg/dL (0.2-1.3); Blood Urea Nitrogen 17 mg/dL (7-17); Calcium 9.6 mg/dL (8.4-10.2); Carbon Dioxide 28 mmol/L (22-30); Chloride 103 mmol/L (98-107); Cholesterol 130 mg/dL (0-200); Estimated Glomerular Filt Rate > 60; Glucose 86 mg/dL (65-110); HDL Direct 44 mg/dL; Magnesium 2.4 mg/dL (1.6-2.3); Potassium 4.8 mmol/L (3.4-5.0); Sodium 137 mmol/L (137-145); Total Protein 7.8 g/dL (6.3-8.2); Triglycerides 91 mg/dL (<150)
[2025-10-14 19:32] LABS: Thyroid Stimulating Hormone 0.959 uIU/mL (0.465-4.680)
== END 2025-10-14 08:33 | disposition home or self-care (01) ==
PROVIDERS: PCP Nurse Practitioner Adult Health; Visit Provider Nurse Practitioner Adult Health
DX: I10 Essential (primary) hypertension (principal); E03.9 Hypothyroidism, unspecified
CPT/HCPCS: 36415; 80053; 80061; 83735; 84443; 85025